=== PATIENT | male | born 1990 | race Caucasian/White ===

== ENCOUNTER 2018-11-19 15:18 | Emergency (ER) | payer OTHER ==
[2018-11-19 18:00] VITALS: BP 131/81
== END 2018-11-19 18:00 | disposition home or self-care (01) | DRG 914 ==
LOC: ED 15:18
DX: S09.90XA Unspecified injury of head, initial encounter (principal); M79.10 Myalgia, unspecified site; F17.200 Nicotine dependence, unspecified, uncomplicated; V53.6XXA Passenger in pick-up truck or van injured in collision with car, pick-up truck or van in traffic accident, initial encounter